=== PATIENT | male | born 1965 | race Caucasian/White ===

== ENCOUNTER 2020-02-26 15:20 | Emergency (ER) | payer OTHER, SELFPAY ==
[2020-02-26] VITALS (61 sets, daily range): BP systolic 123–217; BP diastolic 65–125; PULSE 79–137; RESP 8–43; TEMP 36.1–37.1; O2SAT 30–95
--- NOTE | 2020-02-26 15:23 | ED.GENADUL_ITS ---
Discharge Plan Disposition Patient Disposition: [facility] Condition: Critical Discharge Details Clinical Impression: Acute respiratory distress, COVID-19, Multifocal pneumonia, Hyperglycemia Primary Care Provider: Amalia,Local ED Provider: Ophelia Graham Home Meds and New Rx's Prescriptions: No Action aspirin [Baby Aspirin] 81 mg Tablet,Chewable 81 mg PO DAILY RF: 0 gabapentin 100 mg Capsule 100 mg PO .QHS RF: 0 multivitamin with iron [Daily Multivitamin with Iron] Tablet 1 tab PO DAILY RF: 0 Fish Oil Capsule 1,000 mg PO DAILY RF: 0 Rybelsus 3 mg Tablet 3 mg PO DAILY RF: 0 Diamicron 60 mg PO DAILY RF: 0 Tumeric 500 mg PO DAILY RF: 0 Bivis 20 mg PO BID RF: 0 Discharge Data Discharge Date/Time-TO BE ENTERED AT DEPARTURE: 02/26/20 21:00 Medical Decision Making 0915 -- 54-year-old male with a history of diabetes, hypertension, hyperl ipidemia, obesity presents for dry cough, fever, shortness of breath for the past several days with recent positive Covid contact with his . Oxygen saturation 80s on room air per EMS. Increased to 92% on nonrebreather. Patient speaking in 4-5 word sentences but does not appear significantly labored. He has diminished breath sounds in his mid to lower lung garcia bilaterally. He was placed on high flow nasal cannula on arrival and oxygen saturation 95%. Suspect most likely coronavirus. Also consider pneumonia, viral syndrome. Will place an IV, bolus IV fluids, DuoNeb and albuterol. Patient states he has a history of allergy to cortisone and has never had oral steroids. We will hold on IV steroids at this time as his oxygen is within normal limits on high flow nasal cannula and he appears to be tolerating this well. Labs and imaging reviewed. White blood cell count 10. ABG notes pH of 7.44, PCO2 37, PO2 52. Glucose 406. Magnesium 1.6. Troponin negative. Covid result positive. CT chest notes extensive bilateral airspace disease reflecting marked multifocal Covid or ARDS. No PE. 1744 -- Patient's oxygen saturation started to desaturate into the low 70s after return from CT. High flow nasal cannula O2 increased and patient's oxygen saturation only minimally improved. Patient was briefly placed on BiPAP with slight increase in oxygen saturations to mid to low 70s. Patient appears diaphoretic and short of breath. Will place patient in prone and call hospitalist for admission. Oxygen saturation improved to 93% while prone and patient appeared much more comfortable and less diaphoretic. Case discussed with hospitalist Dr. Mcnally who did not feel comfortable with accepting patient for admission here. Case discussed with [facility] critical care who recommended that patient be intubated for transfer due to concern of keeping patient prone and on high flow nasal cannula en route. Discussed with [facility] and they agreed they would not feel comfortable taking pt prone en route. This was discussed with patient and over the phone and they are agreeable with plan for intubation. 1949 -- Patient intubated at bedside with some difficulty. Initially attempted direct intubation and I was unable to view the cords. Then attempted with glide scope but unable to pass the tube and pt's oxygen saturation quickly decreased down as low into the 10-20s. Patient was bagged with improvement of oxygen saturation into the 40s and pt was then intubated on second attempt with glide scope with 7.5 ET tube seen passing through the cords and equal breath sounds b/l. At this time, anesthesia now at bedside and noted oxygen saturation remaining in the 40s and it appeared that the ET tube had a cuff leak. Pt had large amount of frothy pink, red and white secretions which complicated viewing the ET tube with glidescope. An 8.0 ET tube was replaced over the 7.5 ET tube with use of a bougie and patient was continued to be bagged with brief period of heart rate and O2 sats in the 40s with quick return of heart rate to within normal limits and eventual improvement of O2 sats into the low 90s. Pt required hard slow squeezing while bagging to improve his oxygenation. For a brief period, pt was placed on the ventilator and O2 sats decreased to the 70s and he needed to be bagged again. He was eventually placed back on the vent requiring a PEEP of 15 due to his extensive ARDS. Portable chest x-ray confirmed ET tube 2.4 cm above the debbie. Patient noted to have diffuse extensive pneumonia. No pneumothorax. Case discussed with patient's spouse over the phone and she was updated regarding intubation events, patient status and plan. [facility] updated regarding intubation events and patient status. 2109 -- Pt remained stabilized prior to transfer by [facility]. Medical Records Medical records reviewed: Yes I reviewed the patient's medical records. Imaging Data Radiologic Study: Radiologist's impression: CT Angiography Chest With Contrast Exam date and time: 02/26/2020 5:23 PM Age: 54 years old Clinical indication: Cough and shortness of breath; Patient HX: ? Covid +, PT unable to hold breath for study, on 15l oxygen TECHNIQUE: Imaging protocol: Computed tomographic angiography of the chest with intravenous contrast. 3D rendering (Not supervised by radiologist): MIP and/or 3D reconstructed images were created by the technologist. COMPARISON: No relevant prior studies available. FINDINGS: Pulmonary arteries: Normal. No pulmonary emboli. Aorta: Unremarkable. No aortic aneurysm. No aortic dissection. Lungs: There are extensive confluent and patchy airspace disease in the bilateral lungs. Lungs volumes are low. Pleural space: Unremarkable. No pneumothorax. No pleural effusion. Heart: Heart is borderline in size. Mediastinal space: There is small hiatal hernia. Lymph nodes: Unremarkable. No enlarged lymph nodes. Liver: There is mild hepatic steatosis. Gallbladder and bile ducts: There is cholelithiasis without signs of acute inflammation. Bones/joints: Unremarkable. No acute fracture. Soft tissues: Unremarkable. IMPRESSION: 1. Extensive bilateral airspace disease reflects marked multifocal COVID-19 or other infectious pneumonia or ARDS. 2. No definite acute pulmonary embolism. 3. Cholelithiasis without signs of acute inflammation. 4. Hepatic steatosis XR Chest, 1 View Exam date and time: 02/26/2020 8:07 PM Age: 54 years old Clinical indication: Device placement; Other: Post intubation TECHNIQUE: Imaging protocol: XR of the chest Views: 1 view. COMPARISON: CT CHEST PE CTA 02/26/2020 5:23 PM FINDINGS: Tubes, catheters and devices: There is a new ET tube, tip is 2.4 cm above debbie. Lungs: Lungs volumes are low, unchanged. No significant change in extensive and diffuse bilateral airspace opacities. Pleural space: No pneumothorax. Heart/Mediastinum: The heart is partially visualized due to opacities. Bones/joints: Unremarkable. Gastrointestinal tract: Stomach is distended with air. IMPRESSION: 1. Mildly low ET tube, 2.4 cm above debbie. 2. No change in extensive bilateral airspace disease. Lab Data Lab results reviewed: Yes I reviewed the patient's lab results. Labs: 02/26/20 16:25 Blood Blood Culture - Preliminary NO GROWTH 72 HOURS 02/26/20 15:35 Blood Blood Culture - Preliminary NO GROWTH 72 HOURS Laboratory Tests Range/Units 02/26/20 02/26/20 02/26/20 15:35 15:35 15:35 WBC (4.4-10.8) 10^3/uL 10.89 H RBC (4.36-5.78) 10^6/uL 5.35 Hgb (13.5-17.5) g/dL 15.0 Hct (40.0-50.0) % 44.1 MCV (80-95) fL 82.4 MCH (27.0-33.0) pg 28.0 MCHC (32.0-36.0) % 34.0 RDW (11.8-14.1) % 12.6 Plt Count (130-400) 10^3/uL 124 L MPV (8.0-11.0) fL 11.5 H Immature Gran % 0.3 Neutrophils % 93.0 Lymphocytes % 5.5 Monocytes % 1.0 Eosinophils % 0.0 Basophils % 0.2 Nucleated RBC % % 0 Absolute Neutrophils (1.2-6.7) 10^3/uL 10.13 H Absolute Lymphocytes (1.2-3.4) 10^3/uL 0.60 L Absolute Monocytes (0.1-0.8) 10^3/uL 0.11 Absolute Eosinophils (0.0-0.7) 10^3/uL 0.00 Absolute Basophils (0.0-0.2) 10^3/uL 0.02 RBC Morphology Normal PT (9.3-11.0) sec 10.4 INR (0.9-1.1) 1.0 APTT (21.0-27.5) sec 36.8 H ABG Sample Site ABG pH (7.35-7.45) ABG pCO2 (35-45) mmHg ABG pO2 (80-105) mmHg ABG HCO3 (22-26) mmol/L ABG Total CO2 (23-27) mmol/L ABG O2 Saturation (95-98) % ABG Base Excess (-2-3) mmol/L VBG pH VBG pCO2 VBG pO2 VBG HCO3 VBG Total CO2 VBG O2 Saturation VBG Base Excess VBG Lactate (0.6-1.4) mmol/L Oxygen Liter Flow L FiO2 % Sodium (136-145) mmol/L 134 L Potassium (3.5-5.1) mmol/L 4.3 Chloride (98-107) mmol/L 99 Carbon Dioxide (21.0-32.0) mmol/L 26.5 Anion Gap (3-11) mmol/L 8.5 BUN (7-18) mg/dL 30 H Creatinine (0.70-1.30) mg/dL 1.39 H Estimated GFR/1.73 m2 (mL/min/1.73m2) 53.05 Glucose (74-106) mg/dL 406 H Calcium (8.5-10.1) mg/dL 8.1 L Magnesium (1.8-2.4) mg/dL 1.6 L Total Bilirubin (0.2-1.0) mg/dL 0.5 AST (15-37) U/L 24 ALT (16-63) U/L 19 Alkaline Phosphatase (46-116) U/L 75 Troponin I (<0.06) ng/mL < 0.05 Total Protein (6.4-8.2) g/dL 6.7 Albumin (3.4-5.0) g/dL 2.5 L Procalcitonin ng/mL COVID-19 Source SARS-CoV-2 (PCR) (Negative) Influenza Type A (PCR) (Negative) Influenza Type B (PCR) (Negative) RSV (PCR) (Negative) Range/Units 02/26/20 02/26/20 02/26/20 15:35 15:57 16:05 WBC (4.4-10.8) 10^3/uL RBC (4.36-5.78) 10^6/uL Hgb (13.5-17.5) g/dL Hct (40.0-50.0) % MCV (80-95) fL MCH (27.0-33.0) pg MCHC (32.0-36.0) % RDW (11.8-14.1) % Plt Count (130-400) 10^3/uL MPV (8.0-11.0) fL Immature Gran % Neutrophils % Lymphocytes % Monocytes % Eosinophils % Basophils % Nucleated RBC % % Absolute Neutrophils (1.2-6.7) 10^3/uL Absolute Lymphocytes (1.2-3.4) 10^3/uL Absolute Monocytes (0.1-0.8) 10^3/uL Absolute Eosinophils (0.0-0.7) 10^3/uL Absolute Basophils (0.0-0.2) 10^3/uL RBC Morphology PT (9.3-11.0) sec INR (0.9-1.1) APTT (21.0-27.5) sec ABG Sample Site Left radial ABG pH (7.35-7.45) 7.44 ABG pCO2 (35-45) mmHg 37 ABG pO2 (80-105) mmHg 52 L ABG HCO3 (22-26) mmol/L 26 ABG Total CO2 (23-27) mmol/L 22 L ABG O2 Saturation (95-98) % 89 L ABG Base Excess (-2-3) mmol/L 1 VBG pH VBG pCO2 VBG pO2 VBG HCO3 VBG Total CO2 VBG O2 Saturation VBG Base Excess VBG Lactate (0.6-1.4) mmol/L 1.8 H Oxygen Liter Flow L 45 FiO2 % 68 Sodium (136-145) mmol/L Potassium (3.5-5.1) mmol/L Chloride (98-107) mmol/L Carbon Dioxide (21.0-32.0) mmol/L Anion Gap (3-11) mmol/L BUN (7-18) mg/dL Creatinine (0.70-1.30) mg/dL Estimated GFR/1.73 m2 (mL/min/1.73m2) Glucose (74-106) mg/dL Calcium (8.5-10.1) mg/dL Magnesium (1.8-2.4) mg/dL Total Bilirubin (0.2-1.0) mg/dL AST (15-37) U/L ALT (16-63) U/L Alkaline Phosphatase (46-116) U/L Troponin I (<0.06) ng/mL Total Protein (6.4-8.2) g/dL Albumin (3.4-5.0) g/dL Procalcitonin ng/mL 0.8 COVID-19 Source Nasopharynx SARS-CoV-2 (PCR) (Negative) Positive A Influenza Type A (PCR) (Negative) Negative Influenza Type B (PCR) (Negative) Negative RSV (PCR) (Negative) Negative Range/Units 02/26/20 19:55 WBC (4.4-10.8) 10^3/uL RBC (4.36-5.78) 10^6/uL Hgb (13.5-17.5) g/dL Hct (40.0-50.0) % MCV (80-95) fL MCH (27.0-33.0) pg MCHC (32.0-36.0) % RDW (11.8-14.1) % Plt Count (130-400) 10^3/uL MPV (8.0-11.0) fL Immature Gran % Neutrophils % Lymphocytes % Monocytes % Eosinophils % Basophils % Nucleated RBC % % Absolute Neutrophils (1.2-6.7) 10^3/uL Absolute Lymphocytes (1.2-3.4) 10^3/uL Absolute Monocytes (0.1-0.8) 10^3/uL Absolute Eosinophils (0.0-0.7) 10^3/uL Absolute Basophils (0.0-0.2) 10^3/uL RBC Morphology PT (9.3-11.0) sec INR (0.9-1.1) APTT (21.0-27.5) sec ABG Sample Site ABG pH (7.35-7.45) 6.98 L* ABG pCO2 (35-45) mmHg > 100 H* ABG pO2 (80-105) mmHg < 13 L* ABG HCO3 (22-26) mmol/L Not Applicable ABG Total CO2 (23-27) mmol/L Not Applicable ABG O2 Saturation (95-98) % 7 L ABG Base Excess (-2-3) mmol/L Not Applicable VBG pH Cancelled VBG pCO2 Cancelled VBG pO2 Cancelled VBG HCO3 Cancelled VBG Total CO2 Cancelled VBG O2 Saturation Cancelled VBG Base Excess Cancelled VBG Lactate (0.6-1.4) mmol/L Oxygen Liter Flow L FiO2 % Sodium (136-145) mmol/L Potassium (3.5-5.1) mmol/L Chloride (98-107) mmol/L Carbon Dioxide (21.0-32.0) mmol/L Anion Gap (3-11) mmol/L BUN (7-18) mg/dL Creatinine (0.70-1.30) mg/dL Estimated GFR/1.73 m2 (mL/min/1.73m2) Glucose (74-106) mg/dL Calcium (8.5-10.1) mg/dL Magnesium (1.8-2.4) mg/dL Total Bilirubin (0.2-1.0) mg/dL AST (15-37) U/L ALT (16-63) U/L Alkaline Phosphatase (46-116) U/L Troponin I (<0.06) ng/mL Total Protein (6.4-8.2) g/dL Albumin (3.4-5.0) g/dL Procalcitonin ng/mL COVID-19 Source SARS-CoV-2 (PCR) (Negative) Influenza Type A (PCR) (Negative) Influenza Type B (PCR) (Negative) RSV (PCR) (Negative) ECG Data Attestation: I personally reviewed and interpreted this ECG (s) as follows: Interpretation: Rate of 95, sinus, peaked T waves in V2 and V3. No STEMI. OK 144. QRS 87. QTc 449. HPI General Mode of arrival: EMS . Date/Time Provider Initiated Documentation: 02/26/20 15:21 . Limitations to Documentation: no limitations . Information obtained by: patient . HPI Narrative: Patient is a 54-year-old male with a history of obesity, diabetes, hypertension, hyperlipidemia presents for cough, fever, shortness of breath for the past 2 days. His tested positive for Covid a few days ago. [place] move here officially. 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 EMS reports that his oxygen saturation was 80s on room air and went to 92% on a nonrebreather. Patient states his cough has been dry. He also admits to intermittent anterior chest pain. He also admits to loss of sense of smell and taste, decreased appetite. He admits to some recent diarrhea but denies any vomiting. Related Data Home Medications Medication Instructions Recorded Confirmed Bivis 20 mg PO BID 02/26/20 02/26/20 Diamicron 60 mg PO DAILY 02/26/20 02/26/20 Tumeric 500 mg PO DAILY 02/26/20 02/26/20 aspirin [Baby Aspirin] 81 mg PO DAILY 02/26/20 02/26/20 gabapentin 100 mg PO .QHS 02/26/20 02/26/20 multivitamin with iron [Daily 1 tab PO DAILY 02/26/20 02/26/20 Multivitamin with Iron] omega-3 fatty acids [Fish Oil] 1,000 mg PO DAILY 02/26/20 02/26/20 semaglutide [Rybelsus] 3 mg PO DAILY 02/26/20 02/26/20 Allergies Allergy/AdvReac Type Severity Reaction Status Date / Time cortisone Allergy Unverified 02/26/20 15:42 Review of Systems All systems reviewed & are unremarkable except as noted in HPI and below Constitutional Constitutional: Reports as per HPI, Reports chills, Reports fatigue, Reports fever(s) and Reports poor appetite Eyes Eyes: Denies blurry vision ENT Ears, Nose, Mouth, and Throat: Denies dizziness, Denies sore throat, Denies throat swelling and Reports other (loss of sense of smell and taste) Cardiovascular Cardiovascular: Reports chest pain and Reports dyspnea Respiratory Respiratory: Reports cough and Reports dyspnea Gastrointestinal Gastrointestinal: Denies abdominal pain, Reports diarrhea and Denies vomiting Genitourinary Genitourinary: Denies hematuria and Denies dysuria Musculoskeletal Musculoskeletal: Denies back pain and Denies numbness Integumentary/Breasts Skin/Breast: Denies lesions and Denies rash Neurologic Neurologic: Denies dizziness, Denies localized weakness and Denies numbness Endocrine Endocrine: Reports fatigue Allergic/Immunologic Allergic/Immunologic: Denies throat swelling [facility] Medical History (Updated 03/01/20 @ 09:10 by Ophelia Graham DO) Diabetes HTN (hypertension) Hx of hyperlipidemia Social History Smoking/Tobacco Use Status: Never Smoking risk assessment performed?: Yes Alcohol Intake: never Substance use type: does not use Exam Const General: cooperative and in distress respiratory (mild, speaking in 4-5 word broken sentences) Nutritional Appearance: obese centrally obese Orientation: alert, awake and oriented x3 HENMT Head: normal to inspection Ears: hearing grossly normal bilaterally and external ears normal General nose exam: external nose normal Face and sinus: normal facial exam Mouth: mucous membranes dry Teeth and gingiva: dentition normal Throat: posterior oropharynx normal Eyes General: appearance normal, both eyes and all related structures Eyelids: eyelids normal Pupils: PERRL EOM: EOM intact bilaterally Neck Neck: normal visual inspection Lymphatic: no lymphadenopathy noted Chest Chest: normal inspection of the chest Resp Effort & Inspection: normal respiratory effort, not able to speak in complete sentences (4-5 word sentences but not in significant distress; tachypneic), no grunting, no nasal flaring, no pursed lip breathing, no stridor, not tachypneic, no tripod positioning and no use of accessory muscles Auscultation: diminished lung sounds bilaterally (significantly diminshed mid to lower ) Cardio Rate: regular rate Rhythm: regular rhythm GI Inspection: normal to inspection and obesity Palpation: soft, not firm, no guarding, no hepatosplenomegaly, no masses and nontender Auscultation: normal bowel sounds Skin General skin exam: no rashes or lesions noted Neuro General: patient alert and patient awake Cognition: normal cognition Speech: speech normal Motor: muscle tone normal throughout Sensory Exam: no sensory deficits noted Extrem General: normal to inspection, full ROM, capillary refill normal and no edema Psych Appearance: grossly normal Mental Status: mental status grossly normal Speech and Movement: speech and movement normal Affect: normal affect Thought Process: normal Procedures Intubation Time out performed: Yes sedative: Etomidate Mg Given: 20 paralytic: Succinylcholine Mg Given: 100 Laryngoscope: other (glidescope) ET Tube Size: 7.5 ET Tube Uncuffed: No Tube Secured Depth (cm): 23 Tube Secured Location: teeth Tube Placement Confirmation: visualized tube passing through cords, equal breath sounds bilaterally, no breath sounds over epigastrum and confirmation by capnometry Intubation Complications: difficult intubation and hypoxia Additional Comments: Initially attempted intubation direct with Mac 4 and 7.5 cuffed ETT but no visualization of cords. Then attempted with glidescope but unable to pass tube and pt quickly hypoxic. Once saturations improved with bagging, reattempted with glidescope and able to view ETT passing through vocal cords with equal breath sounds b/l. Critical Care Time Critical Care Time Critical Care Time: Yes Total Critical Care Time: 120 Attestation: I spent a total of 120 minutes of critical care time with this patient. This does not include time spent on separately reported billable procedures.
--- NOTE | 2020-02-26 15:30 | RT.EKG_ITS ---
APPROVED REPORT Exam: Resting ECG Patient Location: E HR:95 bpm ECG Measurements Heart Rate 95 AXIS WI 144 P 21 QRSd 87 QRS -21 QT 358 T 34 QTc 449 Conclusion Sinus rhythm...normal P axis, V-rate 60- 99 Left atrial enlargement...P, P'>60mS, <-0.15mV V1 Left ventricular hypertrophy...multiple voltage criteria. Peaked T waves in V2-3. No STEMI. I have reviewed and interpreted ECG and agree with software generated interpretation.
--- NOTE | 2020-02-26 15:45 | DI.CT_ITS ---
EXAM: CT CHEST PE CTA CLINICAL HISTORY: shortness of breath, cough, r/o PE, pneumonia. TECHNIQUE: Imaging Protocol: CT angiography of the chest was performed using pulmonary embolus harvey col. Multi planar reconstructions were performed. CONTRAST MATERIAL: Intravenous: Omnipaque 350 Contrast volume: 100 cc COMPARISON: No exams were available for comparison FINDINGS: CHEST: PULMONARY ARTERIES: There are no obvious intraluminal filling defects to suggest acute pulmonary embo li.Low lung volumes. LUNGS: There are extensive patchy patchy and confluent infiltrates throughout both lungs, not associa reginald with pleural effusions. No focal findings in trachea and mainstem bronchi. There are no pleur al effusions. MEDIASTINUM: There appear to be slightly enlarged lymph nodes in both hilar regions as well as subcar inal but this may be exaggerated by the low lung volumes. Nodules noted in both thyroid lobes. CARDIAC: Heart size is upper normal. There is no pericardial effusion.Caliber of the thoracic aorta is within normal limits. There is no evidence of shift of the interventricular septum. PARTIALLY VISUALIZED UPPERMOST ABDOMEN: No significant adrenal masses. Hepatic steatosis. Cholelith iasis noted but no evidence of acute cholecystitis. OSSEOUS: No significant osseous lesions.. IMPRESSION: 1. No evidence of acute pulmonary emboli. However, there are extensive bilateral patchy and confluen t infiltrates throughout both lung garcia most probably infectious or ARDS/Covid-19 disease. 2. No pleural effusions. Mild adenopathy. 3. No pericardial effusion. Heart size upper normal. Cholelithiasis noted. No evidence of acute cholecystitis. Hepatic steatosis also evident. RADIATION DOSE DELIVERED: LINK-TO-SR Total DLP DATA REPOSITORY: All CT scans at this facility are submitted to the National Radiology Data Registry (NRDR) Dose Index Registry (DIR) with the [employer] (A[employer]). RADIATION OPTIMIZATION: All CT scans at this facility use at least one of these dose optimization te chniques: automated exposure control; mA and/or kV adjustment per patient size (includes targeted exa ms where dose is matched to clinical indication); or iterative reconstruction.
[2020-02-26] MEDS: Albuterol 2.5 MG/3 ML INH SOLN VIAL 5 MG UPD (16:00)
[2020-02-26] MEDS: Normal Saline 1,000 ML 1000 ML IV (16:00)
[2020-02-26 16:06] LABS: BE 1 mmol/L (-2-3); HCO3 26 mmol/L (22-26); pCO2 37 mmHg (35-45); pH 7.44 (7.35-7.45); pO2 52 mmHg (80-105); sO2 89 % (95-98); tCO2 22 mmol/L (23-27)
[2020-02-26 16:10] LABS: FIO2 68 %; FIO2L 45 L; Site Left Radial
[2020-02-26 16:11] LABS: Source Nasopharynx
[2020-02-26 16:21] LABS: Lactate 1.8 mmol/L (0.6-1.4)
[2020-02-26 16:22] LABS: Abs Immature Grans 0.03 10^3/uL (0.0-0.06); Absolute Basophil Count 0.02 10^3/uL (0.0-0.2); Absolute Monocyte Count 0.11 10^3/uL (0.1-0.8); Absolute Neutrophil Count 10.13 10^3/uL (1.2-6.7); Basophils % 0.2; HCT 44.1 % (40.0-50.0); Immature Grans % 0.3; Lymphocytes % 5.5; MCV 82.4 fL (80-95); MPV 11.5 fL (8.0-11.0); Nucleated RBC 0 %; Platelet Count 124 10^3/uL (130-400); RBC 5.35 10^6/uL (4.36-5.78); RDW 12.6 % (11.8-14.1); RDW-SD 38.5 fL; WBC 10.89 10^3/uL (4.4-10.8)
[2020-02-26] MEDS: Albuterol/Ipratropium 3 ML UPD VIAL UPD (16:26)
[2020-02-26 16:34] LABS: PTT Activated 36.8 sec (21.0-27.5); Prothrombin Time 10.4 sec (9.3-11.0)
[2020-02-26 16:37] LABS: ALT 19 U/L (16-63); AST 24 U/L (15-37); Albumin 2.5 g/dL (3.4-5.0); Alkaline Phosphatase 75 U/L (46-116); Anion Gap 8.5 mmol/L (3-11); BUN 30 mg/dL (7-18); Bilirubin, Total 0.5 mg/dL (0.2-1.0); CO2 26.5 mmol/L (21.0-32.0); CREATININE 1.39 mg/dL (0.70-1.30); Calcium 8.1 mg/dL (8.5-10.1); Chloride 99 mmol/L (98-107); Estimated GFR 53.05 (mL/min/1.73m2); Glucose 406 mg/dL (74-106); Magnesium 1.6 mg/dL (1.8-2.4); Potassium 4.3 mmol/L (3.5-5.1); Sodium 134 mmol/L (136-145); Total Protein 6.7 g/dL (6.4-8.2); Troponin I < 0.05 ng/mL (<0.06)
[2020-02-26] MEDS: LORazepam 2 MG/ML VIAL 1 MG IVP (17:11)
[2020-02-26] MEDS: Omnipaque 350 MG/ML 100 ML BTL IJ (17:20)
[2020-02-26 17:21] LABS: Influenza A PCR Negative (Negative); Influenza B PCR Negative (Negative); RSV PCR Negative (Negative)
[2020-02-26] MEDS: Normal Saline - Diluent 50 ML VIAL IV (17:21)
[2020-02-26] MEDS: Normal Saline Flush 10 ML SYR IVP (17:21)
[2020-02-26 17:25] LABS: COVID-19 PCR POSITIVE (Negative)
--- NOTE | 2020-02-26 17:45 | DI.VRAD_ITS ---
PROCEDURE INFORMATION: Exam: CT Angiography Chest With Contrast Exam date and time: 02/26/2020 5:23 PM Age: 54 years old Clinical indication: Cough and shortness of breath; Patient HX: ? Covid +, PT unable to hold breath for study, on 15l oxygen TECHNIQUE: Imaging protocol: Computed tomographic angiography of the chest with intravenous contrast. 3D rendering (Not supervised by radiologist): MIP and/or 3D reconstructed images were created by the technologist. COMPARISON: No relevant prior studies available. FINDINGS: Pulmonary arteries: Normal. No pulmonary emboli. Aorta: Unremarkable. No aortic aneurysm. No aortic dissection. Lungs: There are extensive confluent and patchy airspace disease in the bilateral lungs. Lungs volumes are low. Pleural space: Unremarkable. No pneumothorax. No pleural effusion. Heart: Heart is borderline in size. Mediastinal space: There is small hiatal hernia. Lymph nodes: Unremarkable. No enlarged lymph nodes. Liver: There is mild hepatic steatosis. Gallbladder and bile ducts: There is cholelithiasis without signs of acute inflammation. Bones/joints: Unremarkable. No acute fracture. Soft tissues: Unremarkable. IMPRESSION: 1. Extensive bilateral airspace disease reflects marked multifocal COVID-19 or other infectious pneumonia or ARDS. 2. No definite acute pulmonary embolism. 3. Cholelithiasis without signs of acute inflammation. 4. Hepatic steatosis Dictated and Authenticated by: Amrik Roman MD. Ordering:GYPSY Jacinto MD
[2020-02-26] MEDS: methylPREDNISolone SUCC 125 MG VIAL IVP (17:47)
[2020-02-26] MEDS: Normal Saline 1,000 ML 125 ML IV (17:48)
[2020-02-26] MEDS: Albuterol 2.5 MG/3 ML INH SOLN VIAL (17:50)
--- NOTE | 2020-02-26 18:15 | NUR.NOTE ---
pt returned from CT scan coughing and SOB , RT was called to the bedside , meds as orderd Bi pap was started not much change. pt was then placed in a proning position with instant results of sa02 in 93% on high flow and NRB by [id number] Note:
[2020-02-26] MEDS: cefTRIAXone 1 GM/50 ML BAG IVPB (18:22)
[2020-02-26] MEDS: Insulin REGULAR-Human 100 UNITS/ML UNIT 7 UNITS IV ×2 (18:30→20:35)
[2020-02-26] MEDS: AZITHROMYCIN 500 MG in Normal Saline 250 ML 250 MG IVPB (18:31)
[2020-02-26] MEDS: Dexamethasone 10 MG/ML VIAL 6 MG IVP (18:31)
[2020-02-26 18:33] LABS: Procalcitonin 0.8 ng/mL
[2020-02-26] MEDS: Etomidate 20 MG/10 ML VIAL IVP (19:26)
[2020-02-26] MEDS: Succinylcholine 200 MG/10 ML VIAL 100 MG IVP (19:27)
[2020-02-26] MEDS: Propofol 200 MG/20 ML VIAL 100 MG IVP (19:34)
[2020-02-26] MEDS: PROPOFOL 1,000 MG/100 ML BTL 29.1 MG IVPB (19:40)
--- NOTE | 2020-02-26 19:45 | DI.RAD_ITS ---
EXAM: XR PORTABLE CHEST AP POST LINE CLINICAL HISTORY: s/p intubation. TECHNIQUE: 2D digital imaging was performed. COMPARISON: Prior CT scan was reviewed FINDINGS: Tip of the endotracheal tube is approximately 2 centimeter above the debbie. There are extensive confluent infiltrates throughout both lung garcia. No obvious pleural effusions. No obvious pneumothorax. No fractures evident. Abundant air is noted in the stomach IMPRESSION: Extensive bilateral pulmonary airspace disease. Possibly Covid related Distal tip of the ET tube is 2 centimeters above the debbie DATA REPOSITORY: RADIATION DOSE DELIVERED:
--- NOTE | 2020-02-26 20:17 | DI.VRAD_ITS ---
PROCEDURE INFORMATION: Exam: XR Chest, 1 View Exam date and time: 02/26/2020 8:07 PM Age: 54 years old Clinical indication: Device placement; Other: Post intubation TECHNIQUE: Imaging protocol: XR of the chest Views: 1 view. COMPARISON: CT CHEST PE CTA 02/26/2020 5:23 PM FINDINGS: Tubes, catheters and devices: There is a new ET tube, tip is 2.4 cm above debbie. Lungs: Lungs volumes are low, unchanged. No significant change in extensive and diffuse bilateral airspace opacities. Pleural space: No pneumothorax. Heart/Mediastinum: The heart is partially visualized due to opacities. Bones/joints: Unremarkable. Gastrointestinal tract: Stomach is distended with air. IMPRESSION: 1. Mildly low ET tube, 2.4 cm above debbie. 2. No change in extensive bilateral airspace disease. Dictated and Authenticated by: Amrik Roman MD. Ordering:GYPSY Jacinto MD
--- NOTE | 2020-02-26 20:25 | NUR.NOTE ---
pt has been intubated size 7.5 , 25 at the lips. ng tube placed in the right nare , Nursing Note:
[2020-02-26 20:27] LABS: pCO2 > 100 mmHg (35-45); pH 6.98 (7.35-7.45); sO2 7 % (95-98)
[2020-02-26 20:28] LABS: pO2 < 13 mmHg (80-105)
[2020-02-26 21:14] LABS: Diff Comment PLT Morph Reviewed; RBC Morphology Normal
[2020-02-26] MEDS: PROPOFOL 1,000 MG/100 ML BTL 100 MG (21:31)
== END 2020-02-26 21:00 | disposition short-term general hospital (02) ==
PROVIDERS: Emergency Provider Physician Assistant
DX: U07.1 COVID-19 (principal); J12.82 Pneumonia due to coronavirus disease 2019; J80 Acute respiratory distress syndrome; E11.65 Type 2 diabetes mellitus with hyperglycemia; I10 Essential (primary) hypertension; R09.02 Hypoxemia
CPT/HCPCS: 31500; 36415; 36416; 51702; 71045; 71275; 80053; 82805; 82962; 84145; 87040; 87637; 93005; 94640; 96361; 96365; 96366; 96368; 96372; 96375; 96376; 99291; 99292; 36600; 83605; 83735; 84484; 85025; 85610; 85730; 93010; J0456; J0696; J1100; J2060; J2704; J2930; J3490; J7613; J7620

== ENCOUNTER 2020-06-27 01:47 | Outpatient (CLI) | payer OTHER, SELFPAY ==
--- NOTE | 2020-06-27 10:26 | DI.US_ITS ---
APPROVED REPORT EXAM: Comprehensive 2D, Doppler, and color-flow Echocardiogram Patient Location: Out-Patient Court Orderly: Enid Rowan RDCS (AE) Indications: Swelling in lower extremities, DM Other Information Study Quality: Good Conclusion Left Ventricle : The left ventricle is normal size. The left ventricular systolic function is normal. The left ventricular ejection fraction is within the normal range. There is normal left ventricular wall thickness. There is normal LV segmental wall motion. The left ventricular diastolic function is normal. LVEF is 58%. Right Ventricle : The right ventricle is normal size. The right ventricular systolic function is norm al. The RVSP is 37.0mmHg. Atria : Left atrium is mildly dilated. The right atrium size is normal. Aortic Valve : Aortic valve is possibly bicuspid. Trace aortic regurgitation. There is no aortic valv ular stenosis. Mitral Valve : Mild mitral annular calcification. Mild mitral regurgitation. No evidence of mitral va lve stenosis. Great Vessels : The aortic root is normal in size. The ascending aorta is mildly dilated. Aortic arch is normal in caliber. IVC is normal in size and collapses >50% with inspiration. Compared to study at [facility] from 03/18/2020, there is no significant change. Wall motion Left Ventricle The left ventricle is normal size. The left ventricular systolic function is normal. The left ventric ular ejection fraction is within the normal range. There is normal left ventricular wall thickness. T here is normal LV segmental wall motion. The left ventricular diastolic function is normal. There is no ventricular septal defect visualized. LVEF is 58%. Right Ventricle The right ventricle is normal size. The right ventricular systolic function is normal. The RVSP is 37 .0mmHg. Atria Left atrium is mildly dilated. The right atrium size is normal. The interatrial septum is intact with no evidence for an atrial septal defect. Aortic Valve Aortic valve is possibly bicuspid. There is no aortic valvular stenosis. Trace aortic regurgitation. Mitral Valve Mild mitral annular calcification. No evidence of mitral valve stenosis. Mild mitral regurgitation. Tricuspid Valve The tricuspid valve is normal in structure. There is no tricuspid valve stenosis. Trace tricuspid reg urgitation. Pulmonic Valve The pulmonary valve is normal in structure. There is no pulmonic valvular stenosis. Trace pulmonic re gurgitation. Great Vessels The aortic root is normal in size. The ascending aorta is mildly dilated. Aortic arch is normal in ca liber. IVC is normal in size and collapses >50% with inspiration. Pericardium There is no pericardial effusion. 2D Dimensions IVSD d PLAX 1.04 cm M: 0.6-1.2 LV Vol A2C d MOD 174.6 mL LVPW d PLAX 1.04 cm M: 0.6 - 1.2 LV Vol A4C d MOD 193.4 mL LVID d PLAX 5.37 cm M: 4.2 - 5.8 LA vol/ BSA A2C s A-L 38.1 mL/m2 LVDs 3.55 cm M: 2.5 - 4.0 LA vol/ BSA A4C s A-L 40.0 mL/m2 Ao Root d 3.26 cm M: 3.1 - 3.7 LA Vol/ BSA Biplane s A-L 40.6 mL/m2 RA Area A4C 12.39 cm2 LA Area A4C s MOD 24.10 cm2 RA Vol/ BSA A4C s A-L 12.7 mL/m2 LA Area A2C s MOD 22.65 cm2 Ao Asc Diam d 3.57 cm M: 2.6 - 3.4 LV EF A4C MOD 57.8 % LV EF Teichholz 62.3 % LV EF A2C MOD 57.9 % LVEF (Valenzuela's) 56.89 % M: 52 - 72 LV EF Biplane MOD 56.9 % LV Volume 136.01 mL M: 62 - 150 SV 104.85 mL LV Volume Index 64.76 mL/m2 M: 34 - 74 SV Index 49.91 mL/m2 LV Vol Biplane MOD 184.3 mL FS 33.90 % M-Mode TAPSE 2.87 cm (M/F) >1.7 LV Diastology MV E' medial 0.072 (>0.07 m/s) E/A Ratio 1.2 LV E/e MED 15.50 (<14) MV E Vmax 1.11 (0.4-1.3 m/s) MV E' lateral 0.109 (>0.1 m/s) MV A Vmax 0.90 (0.4-1.3 m/s) LV E/e LAT 10.15 (<14) MV E/A Ratio 1.21 MV E/E' medial 15.51 MV E/E' lateral 10.19 Aortic Valve LVOT Area 3.57 cm2 AoV Area Vmax 2.92 cm2 LVOT Vmax 1.34 m/s AoV Area/ BSA (Vmax) 1.39 cm2/m2 LVOT Mean Rocky. 0.89 m/s ASA Mean Rocky. 2.75 cm2 LVOT Peak Grad 7.1 mmHg ASA Mean Rocky. Index 1.31 cm2/m2 LVOT Mean Grad 3.8 mmHg LVOT VTI 0.297 m LVOT Diam s 2.10 cm AoV Vmax 1.63 m/s Velocity Ratio 0.82 AoV Mean Rocky. 1.16 m/s AoV Peak Grad 10.7 mmHg LVOT SV 106.09 mL AoV Mean Grad 5.9 mmHg AoV VTI 0.314 m AoV Area VTI 3.38 cm2 AoV Area/ BSA (VTI) 1.61 cm/m2 Mitral Valve MV DT 217 (160-240 msec) MR Vmax 4.89 m/s MV PHT 63 msec MR VTI 1.613 m MV Area PHT 3.50 cm2 MR Peak Grad 95.6 mmHg MV VTI 0.298 m MR Mean Grad 71.4 mmHg MV VTI Annulus 0.300 m MR PISA Radius 0.42 cm MV Area VTI 3.58 (4.0-6.0 cm2) MR EROA 0.08 cm2 MR Aliasing Velocity 0.35 m/s MR PISA 1.11 cm2 Pulmonary Valve PV Vmax 1.16 (0.5-1.5 m/s) RVOT Peak Gr. 2.75 mmHg PV Peak Grad 5.4 mmHg RVOT Mean Gr. 1.60 mmHg PV Mean Grad 3.2 mmHg RVOT VTI 0.177 m PV VTI 0.244 m RVOT Vmax 0.83 m/s Tricuspid Valve TR Peak Grad 34.0 mmHg TR Vmax 2.92 m/s RA Pressure 3.00 mmHg RVSP (TR) 37.0 mmHg
== END 2020-06-27 02:07 ==
PROVIDERS: PCP Nurse Practitioner Family; Visit Provider Nurse Practitioner Family
DX: R60.0 Localized edema (principal); E11.9 Type 2 diabetes mellitus without complications; I34.0 Nonrheumatic mitral (valve) insufficiency; I77.810 Thoracic aortic ectasia
CPT/HCPCS: 93306

== ENCOUNTER 2020-09-11 03:27 | Outpatient (CLI) | payer OTHER, SELFPAY ==
[2020-09-11 12:44] LABS: TSH 1.05 uIU/mL (0.36-3.74)
== END 2020-09-11 03:28 | disposition home or self-care (01) ==
PROVIDERS: PCP Nurse Practitioner Family; Visit Provider Nurse Practitioner Family
DX: E11.9 Type 2 diabetes mellitus without complications (principal); R60.0 Localized edema
CPT/HCPCS: 36415; 84443

== ENCOUNTER 2021-06-11 05:28 | Outpatient (CLI) | payer BC, SELFPAY ==
[2021-06-11 08:04] LABS: Hemoglobin A1C 7.2 % (<5.7)
[2021-06-11 08:51] LABS: ALT 22 U/L (16-63); AST 17 U/L (15-37); Albumin 4.1 g/dL (3.4-5.0); Alkaline Phosphatase 63 U/L (46-116); Anion Gap 6.7 mmol/L (3-11); BUN 44 mg/dL (7-18); Bilirubin, Total 0.5 mg/dL (0.2-1.0); CO2 28.3 mmol/L (21.0-32.0); CREATININE 1.7 mg/dL (0.70-1.30); Calcium 9.1 mg/dL (8.5-10.1); Calculated LDL 141 mg/dL (<100); Chloride 105 mmol/L (98-107); Cholesterol 207 mg/dL (<200); Estimated GFR 41.75 (mL/min/1.73m2); Glucose 142 mg/dL (74-106); HDL Cholesterol 39 mg/dL (40-60); Potassium 4.3 mmol/L (3.5-5.1); Sodium 140 mmol/L (136-145); Triglyceride 135 mg/dL (<150)
== END 2021-06-11 05:29 | disposition home or self-care (01) ==
LOC: LBO 05:29
PROVIDERS: PCP Nurse Practitioner Family; Visit Provider Nurse Practitioner Family
DX: I10 Essential (primary) hypertension (principal); E11.42 Type 2 diabetes mellitus with diabetic polyneuropathy; Z13.220 Encounter for screening for lipoid disorders
CPT/HCPCS: 36415; 80053; 80061; 83036

== ENCOUNTER 2021-06-13 10:46 | Outpatient (CLI) | payer BC, SELFPAY ==
--- NOTE | 2021-06-13 10:45 | RT.EKG_ITS ---
APPROVED REPORT Exam: Resting ECG Reason for Exam: HTN Patient Location: O HR:75 bpm ECG Measurements Heart Rate 75 AXIS OK 156 P 27 QRSd 96 QRS -7 QT 386 T 68 QTc 432 Conclusion Sinus rhythm...normal P axis, V-rate 50- 99 Left ventricular hypertrophy...multiple voltage criteria
== END 2021-06-13 10:47 | disposition home or self-care (01) ==
LOC: DI.CARD 10:47
PROVIDERS: PCP Nurse Practitioner Family; Visit Provider Internal Medicine Cardiovascular Disease
DX: I10 Essential (primary) hypertension (principal)
CPT/HCPCS: 93010

== ENCOUNTER 2021-07-25 02:22 | Outpatient (CLI) | payer BC, SELFPAY ==
[2021-07-25 09:49] LABS: Anion Gap 8.7 mmol/L (3-11); BUN 44 mg/dL (7-18); CO2 25.3 mmol/L (21.0-32.0); CREATININE 2.1 mg/dL (0.70-1.30); Calcium 9.3 mg/dL (8.5-10.1); Chloride 107 mmol/L (98-107); Estimated GFR 32.72 (mL/min/1.73m2); Glucose 148 mg/dL (74-106); Potassium 4.3 mmol/L (3.5-5.1); Sodium 141 mmol/L (136-145)
== END 2021-07-25 02:23 | disposition home or self-care (01) ==
LOC: LBO 02:22
PROVIDERS: PCP Nurse Practitioner Family; Visit Provider Internal Medicine Cardiovascular Disease
DX: Z79.899 Other long term (current) drug therapy (principal); I10 Essential (primary) hypertension; I48.92 Unspecified atrial flutter
CPT/HCPCS: 36415; 80048

== ENCOUNTER 2022-12-03 04:04 | Outpatient (CLI) | payer BC, SELFPAY ==
[2022-12-03 09:20] LABS: TSH (W/Ref FT4) 0.58 uIU/mL (0.36-3.74)
[2022-12-06 15:07] LABS: Testosterone, Total 350 ng/dL (240-950)
== END 2022-12-03 04:05 | disposition home or self-care (01) ==
LOC: LBO 04:04
PROVIDERS: PCP Nurse Practitioner Family; Visit Provider Nurse Practitioner Gerontology
DX: E29.1 Testicular hypofunction (principal); N52.9 Male erectile dysfunction, unspecified
CPT/HCPCS: 36415; 84403; 84443

== ENCOUNTER 2023-03-31 03:16 | Outpatient (CLI) | payer BC, SELFPAY ==
[2023-03-31 10:05] LABS: ALT 24 U/L (16-63); AST 16 U/L (15-37); Albumin 3.9 g/dL (3.4-5.0); Alkaline Phosphatase 64 U/L (46-116); Bilirubin, Direct 0.1 mg/dL (0.0-0.2); Bilirubin, Total 0.4 mg/dL (0.2-1.0); Total Protein 7.3 g/dL (6.4-8.2)
== END 2023-03-31 03:17 | disposition home or self-care (01) ==
PROVIDERS: PCP Nurse Practitioner Family; Visit Provider Nurse Practitioner Family
DX: E88.09 Other disorders of plasma-protein metabolism, not elsewhere classified (principal)
CPT/HCPCS: 36415; 80076

== ENCOUNTER 2023-10-27 02:32 | Outpatient (CLI) | payer BC, SELFPAY ==
[2023-10-27 10:06] LABS: Calculated LDL 87 mg/dL (<100); Cholesterol 155 mg/dL (<200); Estimated GFR 37.74 (mL/min/1.73m2); HDL Cholesterol 37 mg/dL (40-60); Potassium 4.4 mmol/L (3.5-5.1); Triglyceride 156 mg/dL (<150)
== END 2023-10-27 02:33 | disposition home or self-care (01) ==
LOC: LBO 02:32
PROVIDERS: PCP Nurse Practitioner Family; Visit Provider Nurse Practitioner Family
DX: N18.9 Chronic kidney disease, unspecified (principal); Z13.220 Encounter for screening for lipoid disorders
CPT/HCPCS: 36415; 80061; 82565; 84132

== ENCOUNTER 2023-11-04 17:49 | Outpatient (REF) | payer BC, SELFPAY ==
[2023-11-04 13:29] LABS: COMMENT (LAB VIEW ONLY) 136.82 mg/dL
[2023-11-04 13:32] LABS: Microalb ug/mg Crea 169.6 ug/mg Cr
== END 2023-11-04 17:50 | disposition home or self-care (01) ==
LOC: LBN 17:49
PROVIDERS: PCP Nurse Practitioner Family; Visit Provider Nurse Practitioner Family
DX: E11.9 Type 2 diabetes mellitus without complications (principal); E11.42 Type 2 diabetes mellitus with diabetic polyneuropathy; N18.9 Chronic kidney disease, unspecified
CPT/HCPCS: 82043; 82570

== ENCOUNTER 2024-10-31 01:49 | Outpatient (CLI) | payer BC, SELFPAY ==
[2024-10-31 15:57] LABS: Abs Immature Grans 0.03 10^3/uL (0.0-0.06); HCT 38.5 % (40.0-50.0); HGB 13.1 g/dL (13.5-17.5); Immature Grans % 0.4 %; MCH 28.4 pg (27.0-33.0); MCHC 34.0 % (32.0-36.0); MCV 83 fL (80-95); MPV 10.7 fL (8.0-11.0); Platelet Count 205 10^3/uL (130-400); RBC 4.62 10^6/uL (4.36-5.78); RDW 12.8 % (11.8-14.1); RDW-SD 38.6 fL; WBC 7.58 10^3/uL (4.4-10.8)
[2024-10-31 16:45] LABS: ALT 27 U/L (16-63); AST 23 U/L (15-37); Albumin 3.9 g/dL (3.4-5.0); Alkaline Phosphatase 63 U/L (46-116); Anion Gap 9.5 mmol/L (3-11); BUN 37 mg/dL (7-18); Bilirubin, Total 0.5 mg/dL (0.2-1.0); CO2 25.5 mmol/L (21.0-32.0); Calcium 9.2 mg/dL (8.5-10.1); Calculated LDL 88 mg/dL (<100); Chloride 104 mmol/L (98-107); Cholesterol 148 mg/dL (<200); Estimated GFR 39.89 (mL/min/1.73m2); Ferritin 124 ng/mL (26-388); Glucose 201 mg/dL (74-106); HDL Cholesterol 38 mg/dL (>or=40); Potassium 4.7 mmol/L (3.5-5.1); Sodium 139 mmol/L (136-145); TSH (W/Ref FT4) 0.36 uIU/mL (0.36-3.74); Total Protein 7.2 g/dL (6.4-8.2); Triglyceride 110 mg/dL (<150); Vitamin B12 1195 pg/mL (193-986)
[2024-10-31 17:39] LABS: Iron 66 ug/dL (65-175); Total Iron Binding Capacity 289 ug/dL (250-450)
[2024-11-02 09:52] LABS: Transferrin 211 mg/dL (201-352)
[2024-11-02 10:46] LABS: Lyme Ab w Rflx to Lyme Confirm Negative (Negative)
[2024-11-04 19:48] LABS: B. miyamotoi PCR Negative (Negative); Babesia divergens/MO-1 Negative (Negative); Ehrlichia muris eauclairensis Negative (Negative)
== END 2024-10-31 01:50 | disposition home or self-care (01) ==
PROVIDERS: PCP Nurse Practitioner Family; Visit Provider Nurse Practitioner Family
DX: D50.9 Iron deficiency anemia, unspecified (principal); M25.50 Pain in unspecified joint; Z13.220 Encounter for screening for lipoid disorders
CPT/HCPCS: 36415; 80053; 80061; 87798; 82607; 82728; 83540; 83550; 84443; 84466; 85025; 86618

== ENCOUNTER 2025-01-20 11:06 | Outpatient (CLI) | payer BC, SELFPAY ==
--- NOTE | 2025-01-20 11:00 | RT.EKG_ITS ---
APPROVED REPORT Exam: Resting ECG Reason for Exam: hx aflutter, bicuspid aortic valve Patient Location: O HR:72 bpm ECG Measurements Heart Rate 72 AXIS VA 164 P 21 QRSd 97 QRS -15 QT 395 T 43 QTc 433 Conclusion Sinus rhythm...normal P axis, V-rate 50- 99 Left ventricular hypertrophy...multiple voltage criteria Baseline wander in lead(s) V1,V3,V4,V6
== END 2025-01-20 11:07 | disposition home or self-care (01) ==
PROVIDERS: PCP Nurse Practitioner Family; Visit Provider Internal Medicine Cardiovascular Disease
DX: I48.92 Unspecified atrial flutter (principal); Q23.1 Congenital insufficiency of aortic valve; I51.7 Cardiomegaly
CPT/HCPCS: 93010